=== PATIENT | female | born 1985 | race American Indian/Alaskan Native ===

== ENCOUNTER 2020-04-16 06:33 | Emergency (ER) | payer SELFPAY ==
[2020-04-16 06:43] VITALS: BP 156/101
[2020-04-16 07:01] LABS: HCG Qualitative,Urine Negative (Negative)
[2020-04-16 07:04] LABS: Bacteria,Urine 1+ /HPF (Negative); Bilirubin,Urine NEG (Negative); Blood,Urine LG (Negative); Color,Urine Amber (Yellow); Mucus,Urine 3+ /HPF
== END 2020-04-16 06:45 | disposition left against medical advice (07) ==
LOC: ED 06:33
DX: M54.9 Dorsalgia, unspecified (principal); R35.0 Frequency of micturition; Z53.21 Procedure and treatment not carried out due to patient leaving prior to being seen by health care provider
CPT/HCPCS: 81001; 81025; 87086

== ENCOUNTER 2020-04-24 13:14 | Emergency (ER) | payer SELFPAY ==
[2020-04-24 13:41] VITALS: BP 128/80
--- NOTE | 2020-04-24 14:08 | Emergency Department Report ---
ED Female HPI - General Chief complaint: Urogenital-Female Stated complaint: UTI, BLOOD PRESSURE Time Seen by Provider: 04/24/20 13:50 Source: patient Mode of arrival: Ambulatory Limitations: No Limitations - History of Present Illness Initial comments: This is a 34-year-old female she presents to the emergency room stating I think I have a UTI she complains of urinary frequency back pain and itching x2 weeks. Patient also states that she does not like how her blood pressure medicine medication and she feels her blood pressure is too low. She is currently taking metoprolol. Her blood pressure is 128/80. Patient states l sometimes when she takes her blood pressure medicine it gives her chest pain and leg pain. She denies chest pain she denies leg pain now she has no cough no fever no nausea no vomiting, no headache no double vision no dizziness no blurry vision Complaint: dysuria -: week(s) (2) Consistency: intermittent Improves with: none Worsens with: urination Associated Symptoms: denies other symptoms, dysuria. denies: vaginal discharge, vaginal bleeding, abdominal pain, nausea/vomiting, fever/chills, headaches, hematuria, shortness of breath, syncope, weakness - Related Data Allergies Allergy/AdvReac Type Severity Reaction Status Date / Time No Known Allergies Allergy Unverified 04/05/20 13:26 ED Review of Systems ROS: Stated complaint: UTI, BLOOD PRESSURE Other details as noted in HPI Comment: All other systems reviewed and negative Constitutional: denies: chills, fever ENT: denies: ear pain, dental pain Respiratory: denies: cough, SOB with exertion Gastrointestinal: denies: abdominal pain, constipation Skin: denies: rash, change in color Neurological: denies: headache, numbness, paresthesias, abnormal gait ED Past Medical Hx - Past Medical History Previous Medical History?: Yes Hx Hypertension: Yes - Surgical History Past Surgical History?: No - Social History Smoking Status: Never Smoker Substance Use Type: None ED Physical Exam - General Limitations: No Limitations General appearance: alert, in no apparent distress - Head Head exam: Present: atraumatic - Eye Eye exam: Present: normal appearance - ENT ENT exam: Present: normal exam - Respiratory Respiratory exam: Present: normal lung sounds bilaterally, respiratory distress - Cardiovascular Cardiovascular Exam: Present: regular rate, normal rhythm, normal heart sounds - Extremities Exam Extremities exam: Present: normal inspection - Neurological Exam Neurological exam: Present: alert, oriented X3 - Psychiatric Psychiatric exam: Present: normal affect, agitated - Skin Skin exam: Present: warm, dry, intact ED Course Vital Signs 04/24/20 13:17 Temperature 98.4 F Pulse Rate 74 Respiratory 14 Rate Blood Pressure 128/80 O2 Sat by Pulse 98 Oximetry - Reevaluation(s) Reevaluation #1: 04/24/20 14:11 I discussed with patient that her concern regarding her blood pressure medication should be discussed with up with her primary care doctor. Patient became upset and states that part of why she came to the emergency room today . she once again denies chest pain or shortness of breath she does have dysuria and urinary frequency. I explained to her the plan of doing urinalysis to determ ine if she has a urinary tract infection. ED Medical Decision Making - Medical Decision Making I examination pt left without completion of medical evaluation Critical care attestation.: If time is entered above; I have spent that time in minutes in the direct care of this critically ill patient, excluding procedure time. ED Disposition Clinical Impression: Possible urinary tract infection Disposition: ELOPED Is pt being admited?: No Does the pt Need Aspirin: No Condition: Stable Referrals: PRIMARY CARE, [Primary Care Provider] - 3-5 Days
== END 2020-04-24 15:00 | disposition left against medical advice (07) ==
LOC: ED 13:14
DX: N39.0 Urinary tract infection, site not specified (principal); Z53.21 Procedure and treatment not carried out due to patient leaving prior to being seen by health care provider